=== PATIENT | male | born 1985 | race Caucasian/White ===

== ENCOUNTER 2021-01-26 04:17 | Emergency (ER) | payer MEDICAID, OTHER ==
[~2021-01-26] VITALS: Ht 180.3 cm; Wt 77.1 kg
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
[2021-01-26] MEDS ORDERED: TDAP [DIPH/PERTUSSIS/TET] 0.5 ML VIAL IM ONE (04:43)
[2021-01-26] MEDS: TDAP [DIPH/PERTUSSIS/TET] 0.5 ML VIAL IM ONE (04:47)
[2021-01-26] MEDS ORDERED: MORPHINE SULFATE INJ 4 MG/ML DISP.SYRIN ONE (04:50)
[2021-01-26] MEDS ORDERED: ONDANSETRON 4 MG TAB.RAPDIS ONE (04:50)
[2021-01-26] MEDS: ONDANSETRON 4 MG TAB.RAPDIS SL ONE (04:58)
[2021-01-26] MEDS: MORPHINE SULFATE INJ 2 MG/ML DISP.SYRIN IM ONE (04:59)
--- NOTE | 2021-01-26 05:24 | NUR ---
BACK FROM CT.
--- NOTE | 2021-01-26 05:25 | NUR ---
DR SALTER AT BEDSIDE FOR STITCHES
[2021-01-26] MEDS ORDERED: LIDOCAINE HCL/MPF 1% 30 ML VIAL IJ ONE (05:27)
--- NOTE | 2021-01-26 05:56 | NUR ---
CALLED [facility] REGARDING SCANS
[2021-01-26] MEDS ORDERED: HYDR-3972 PO (06:47)
[2021-01-26 06:52] VITALS: BP 120/80
--- NOTE | 2021-01-26 06:52 | NUR ---
Patient discharged to home in stable condition. Written and verbal after care instructions given. Patient verbalizes understanding of instruction.
== END 2021-01-26 06:53 | disposition home or self-care (01) ==
LOC: ER 04:21
DX: S22.42XA Multiple fractures of ribs, left side, initial encounter for closed fracture (principal); S01.311A Laceration without foreign body of right ear, initial encounter; S01.01XA Laceration without foreign body of scalp, initial encounter; S43.492A Other sprain of left shoulder joint, initial encounter; Z59.0 Homelessness; Y00.XXXA Assault by blunt object, initial encounter; Y93.01 Activity, walking, marching and hiking; Y92.89 Other specified places as the place of occurrence of the external cause; Y99.8 Other external cause status
CPT/HCPCS: 12011; 70450; 71111; 72125; 73010; 73030; 90471; 90715; 96372; 99285; J2270; J3490; Q0162